=== PATIENT | male | born 1930 | race Caucasian/White ===

== ENCOUNTER 2019-10-11 09:41 | Observation (INO) | payer OTHER, MEDICARE ==
[2019-10-11] VITALS (10 sets, daily range): BP systolic 112–145; BP diastolic 58–73
[~2019-10-11] VITALS: Ht 177.8 cm; Wt 79.4 kg
--- NOTE | ~2019-10-11 | D ---
[facility] [place] [address] DISCHARGE SUMMARY Name: SATURNINO AYERS Room #: 207-P [facility] Jerry M.R.#: [id number] Admission: 10/11/19 Attend Phys: Fred Gabriel MD Discharge: 10/12/19 Date of : [birth year] Report #: [id number] THIS REPORT FOR: //name// CC: Dr. Shanice Jefferson DATE OF SERVICE: 10/12/2019 ADMITTING DIAGNOSES: 1. Sick sinus syndrome. 2. Pacemaker malfunction. 3. Coronary artery disease. 4. Dyslipidemia. DISCHARGE MEDICATIONS: Are home meds, which include lisinopril 10 mg daily, clopidogrel 75 daily, sublingual nitroglycerin p.r.n., rosuvastatin 5 daily, aspirin 81 mg daily, meclizine 25 daily. PROCEDURE PERFORMED: 1. Generator change. 2. Lead revision. FOLLOWUP: 1. With Dr. Gabriel in [address] Prasad as per his office orders. BRIEF CLINICAL HISTORY: See history and physical in the chart. HOSPITAL COURSE: The patient was admitted to the hospital and underwent uncomplicated lead revision and generator change. The specifics of the serial numbers are noted in the report itself. Post-procedure, the patient did quite well without any issues. Subsequent day readings were satisfactory. The patient was allowed to ambulate. Instructions on lack of movement of the affected arm for 4 weeks etc. was carried forth with him and his son. They voiced understanding. He is now being discharged in stable condition to follow up with the previously stated discharge instructions and medications. By: 1307 [id number] Olivier Meza MD /nt
[~2019-10-11 09:41] MED LIST: ANTIVERT25 MG PO; ASPIR 8181 MG PO; CRESTOR5 MG PO; NORCO 5-325 TA1 EACH PO; VALIUM5 MG PO; ZESTRIL10 MG PO
[2019-10-11] MEDS ORDERED: PLAVIX 75 MG TA75 MG PO (11:13)
[2019-10-11] MEDS ORDERED: MECLIZINE HCL25 M1 PO (14:59)
[2019-10-11] MEDS ORDERED: NITROGLYCERIN0.4 MG SUBLING (16:40)
--- NOTE | 2019-10-11 18:24 | NUR ---
PT. ARRIVED TO FLOOR AROUND 1415; PT. AOX4; NO C/O PAIN; IMMOLIZER OVER L. SIDE; R. GROIN SIDE C/D/I; NO HEMATOMA; L. SIDE CHEST C/D/I; NO HEMATOMA; EDUCATED ABOUT NOT PULLING OR PUSHING WITH L .SIDE; EDUCATED ABOUT KEEPING L. SIDE ARM CLOSE TO CHEST; ST. UNDERSTANDING; NEEDS TO BE REMAIN CONSTANTLY; SOME HESITANCY TO VOID; ABLE TO VOID 75 ML; BLADDER SCANNER 600 ML SHOWING; CONVENIENCE STORE MANAGER NOTIFIED; PT. ABLE TO VOID AFTER BED REST WHILE STANDING UP; 150 ML; BLADDER SCANNER SHOWED 401 ML; CONVENIENCE STORE MANAGER NOTIFIED; NO NEW ORDERS; PT. ABLE TO VOID 125 ML; PER CONVENIENCE STORE MANAGER NOT TO STRAIGHT CATH UNLESS MORE THAN 400 ML IN THE NEXT HOURS; WILL PASS ON REPORT; MONITORING; ASSESSMENT CHARGED; FOLLOWING POC; WILL PASS ON REPORT;
[2019-10-12] VITALS: BP 133/53
[2019-10-12 00:19] VITALS: BP 133/53
--- NOTE | 2019-10-12 04:05 | NUR ---
ASSESSMENT DOCUMENTED.PT BEEN RESTING IN NO ACUTE DISTRESS.A/OX4,FORGETFUL,[place] VSS.SON AT BEDSIDE THROUGH THE NOC.S/P PACEMAKER REVISION.LEFT CHEST INCISION INTACT,IMMOBILIZER IN PLACE.VOIDS W/O DIFFICULTIES THROUGH URINAL.POSSIBLE DISCHARGE TO HOME TODAY.
[2019-10-12 04:34] VITALS: BP 136/56
[2019-10-12 07:55] VITALS: BP 116/53
[2019-10-12 11:45] VITALS: BP 116/55
[2019-10-12 13:12] VITALS: BP 116/55
--- NOTE | 2019-10-12 13:55 | NUR ---
ASSUMMED PT CARE AT APPROXIMATELY 0700. PT A&O X4. ASSESSMENT CHARTED. FALL PRECAUTIONS IN PLACE. PT DENIES HAVING CHEST PAIN. PT DENIES HAVING SOB. PT DENIES HAVING ACUTE PAIN. PT DISCHARGING HOME C SELF CARE. PT AND FAMILY RECEIVED DISCHARGE EDUCATION. PT AND FAMILY STATED UNDERSTANDING AND DENIED HAVING FURTHER QUESTIONS. IV DC. TELE DC. PT RECEIVING HOSPITAL TRANSPORT TO DISCHARGE OFF UNIT. FAMILY MEMBER DRIVING PT HOME. PT DENIES HAVING FURTHER CONCERNS AT THIS TIME. VITAL SIGNS STABLE. PT'S R GROIN DRY AND INTACT. PT'S PACEMAKER INCISION SITE DRY AND INTACT.
--- NOTE | 2019-10-14 14:00 | P ---
[facility] [place] [address] PROCEDURE REPORT Name: ARMENSATURNINO Luanne Room #: 207-P [facility] MHernandez.#: [id number] Admission: 10/11/19 Attend Phys: Fred Gabriel MD Discharge: 10/12/19 Date of : [birth year] Report #: [id number] THIS REPORT FOR: //name// CC: Fred Jefferson DATE OF SERVICE: 10/11/2019 HISTORY: The patient is an 88-year-old with a history of complete heart block. He has had an elevated right ventricular pacing and sensing threshold. Recently, programming changes were made to the leads that I would pace in a unipolar configuration, but this has resulted in excessive pectoralis muscle stimulation. He is, therefore, here for a lead revision with generator exchange. ANESTHESIA: The patient underwent MAC anesthesia with no anesthesia related complications. PROCEDURES PERFORMED: 1. Temporary pacing wire implantation. 2. RV lead revision with placement of a new RV lead. 3. Dual-chamber pacemaker generator exchange. DESCRIPTION OF PROCEDURE: The patient underwent informed consent. We discussed the details of the procedure including the risks, which include but not limited to bleeding, infection, vascular damage, cardiac perforation, and pneumothorax. He understood these risks and is willing to proceed. The patient was brought to the EP laboratory in fasting and sedated state and prepped and draped in a sterile fashion. The patient received systemic vancomycin and then underwent a venogram showing patency of the left axillary vein. Next, I placed a temporary pacing wire via the right femoral 6-Malay short sheath. There were adequate pacing and sensing thresholds noted. The patient was then prepped for a generator exchange. I injected lidocaine at the prior incision site. The incision was made and the chronic pocket was entered. I made some room in the pocket, inferiorly and superiorly. When I moved the lead around, we did not see any loss of capture with the lead. Next, I obtained access to the left axillary vein x 1 using the extrathoracic approach. I could not go deep into the vessel with standard wire. Therefore, I used a Akira wire and was able to advance it deep into the right atrium. The patient did have some tortuosity at the right axillary vein, which made advancing the lead somewhat challenging. I, therefore, had to split the sheath in order to advance into the lead any further. I then positioned the lead into the right ventricular mid septum. At this site, the sensed P waves are around 2-3 millivolts. The thresholds were less than 1 volt at 0.4 milliseconds. The lead was, therefore, sutured to the prepectoral fascia. Next, the temporary wire [facility] [address] [place] [address] PROCEDURE REPORT Name: SATURNINO AYERS Room #: 207-P [facility] Jerry Miller#: [id number] Admission: 10/11/19 Attend Phys: Fred Gabriel MD Discharge: 10/12/19 Date of : [birth year] Report #: [id number] from the right femoral vein was pulled. I connected the new lead to the new device. I connected the old atrial lead, which was still functioning well to the new device. I capped the old RV lead. I placed a TYRX pouch in the pocket given his high risk for infection and complete heart block. The pocket was irrigated with vancomycin and then the pocket was closed in 2 layers using 2-0 for the deep layer, 3-0 for the middle layer, and surgical glue was placed to outer skin layer. The patient awoke neurologically and hemodynamically intact. No complications and no significant bleeding. The explanted pacemaker was a Medtronic model #VEDR01, serial #[id number]. The RV lead that we capped today was a [employer], model #1688TC, 58 cm, serial #[id number], which was originally implanted back in 01/2009. The old atrial lead was a [employer] model #1688TC, 52 cm, serial #[id number], also implanted on 02/09/2009. The newly implanted lead was a Medtronic model #5076, 58 cm, serial #[id number]. The atrial lead demonstrated a P-wave of 2 millivolts, pacing impedance of 418 ohms, and a pacing threshold of 0.75 volts at 0.4 milliseconds. The newly implanted pacemaker lead demonstrated no underlying R waves as the patient is dependent. Pacing impedance was 740 ohms and the pacing threshold was very good at 0.5 volts at 0.4 milliseconds. The device was programmed to the DDDR 60-130 mode. CONCLUSIONS: 1. Successful temporary wire placement. 2. Successful RV lead revision. 3. Successful pacemaker generator exchange. 4. Satisfactory atrial and ventricular pacing and sensing thresholds. 5. Implantation of a TYRX antibiotic pouch. <ELECTRONICALLY SIGNED> By: Fred Gabriel MD 10/14/19 1400 1317 1426 Fred Gabriel MD /nt
== END 2019-10-12 14:45 | disposition home or self-care (01) ==
LOC: CATH 09:41 → 2N 14:20 → CATH 14:51 → 2N 10-12 14:45
PROVIDERS: ADMIT Internal Medicine Cardiovascular Disease
DX: I49.5 Sick sinus syndrome (principal); I25.10 Atherosclerotic heart disease of native coronary artery without angina pectoris; I44.2 Atrioventricular block, complete; T82.119A Breakdown (mechanical) of unspecified cardiac electronic device, initial encounter; E78.5 Hyperlipidemia, unspecified; Z79.82 Long term (current) use of aspirin; Z79.899 Other long term (current) drug therapy
CPT/HCPCS: 62110; 62900; 70005

== ENCOUNTER 2020-06-09 01:23 | Inpatient (IN) | payer OTHER, MEDICARE ==
[~2020-06-09] VITALS: Ht 177.8 cm; Wt 77.1 kg
[~2020-06-09 01:23] MED LIST changes: +MECLIZINE HCL25 M1 PO; +NITROGLYCERIN0.4 MG SUBLING; +PLAVIX 75 MG TA75 MG PO
[2020-06-09] MEDS ORDERED: SEROQUEL 25 MG25 MG PO (01:50)
[2020-06-09] MEDS ORDERED: NAPRELAN375 MG PO (01:51)
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
[2020-06-09 05:06] VITALS: BP 158/67
[2020-06-09 08:39] VITALS: BP 143/77
[2020-06-09 10:45] VITALS: BP 143/77
--- NOTE | 2020-06-09 15:29 | NUR ---
ASSUMED CARE AT 0700 THIS MORNING. HE IS PLEASANT WITH STAFF. HE TOOK HIS MEDICATIONS WITHOUT DIFFICULTY.
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
[2020-06-09 19:18] VITALS: BP 134/65
[2020-06-09 22:00] VITALS: BP 134/65
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
--- NOTE | 2020-06-10 02:12 | NUR ---
Assumed care of patient this pm shift. Patient in his room at the beginning of the shift sleeping. Patient awakened for assessment. Patient denies pain. Patient denies hi/si. Patient is alert and oriented x2. Patient awoke several times during the night confused and worried about his wallet. Patient is medication adherent and takes medications whole with thin fluids. An order was recieved to give patient trazadone for sleep which he took willingly. Patients assessment shows no signs of acute distress. Vital signs are stable. Patients affect is blunted. We will continue to monitor per hospital policy.
[2020-06-10 07:38] VITALS: BP 146/67
[2020-06-10 09:21] VITALS: BP 146/67
--- NOTE | 2020-06-10 09:29 | NUR ---
ASSUMED CARE AT 0700 THIS MORNING. HE REMAINS IN HIS BED UNTIL PROMPTED TO COME OUT TO THE DAY ROOM. HE IS CONFUSED, ASKING IF HIS IS HERE FREQUENTLY. HE IS ASSURED THAT HIS IS NOT HERE. HE WILL ACCEPT THIS ANSWER, FORGET ANSWER, AND ASK AGAIN AND AGAIN IF HIS IS HERE. HE WENT TO MORNING MEETING, BUT GOT UP IN THE MIDDLE OF IT AND STARTED TO HIS ROOM. HE WAS PROMPTED TO GO TO GROUP AND WHEN IT IS OVER HE CAN RETURN TO HIS ROOM. HE REPLIED, "I'M ABOUT TO FALL ASLEEP" HE WALKED BACK TO THE DAY ROOM. HE IS NOT COMBATIVE, JUST DOESN'T LIKE STAFF ANSWERS. HE TOOK HIS MORNING MEDICATIONS WITHOUT PROBLEMS NOTED.
[2020-06-10 12:20] VITALS: BP 146/67
[2020-06-10 20:00] VITALS: BP 101/46
[2020-06-10 22:00] VITALS: BP 101/46
--- NOTE | 2020-06-11 02:21 | NUR ---
Assumed care of patient this pm shift. Patient is pleasantly confused and needs to be reminded of where he is at. Patient believed that his son was going to bring him a long sleeve shirt and take him home. RN spoke with patient and explained the discharge process several times. Patient is also concerned about his belongings. Patient denies pain. Patient denies hi/si. Patients assessment shows no signs of acute distress. Patients breath sounds are clear, bowel sounds present and s1 s2 heard with auscultation. RN also spoke with patients son who called earlier in the evening and explained that the patients are usually here to get their medications in balance and that the process is generally no more than a couple of weeks. Patient is very forgetful and requires repetition to remember. Patients affect is flat. Patient is alert and oriented to self. We will continue to monitor patient per hospital protocol.
--- NOTE | 2020-06-11 12:46 | NUR ---
REYMUNDO contacted Pt's , Elsi Limon, and son Shoaib Limon to set up a family meeting for Monday06/12/2020 @ 1pm. Family was in agreement with this time. Pablo had questions concerning Pt's diagnosis. REYMUNDO informed that Pt is diagnosised with Major Neuro-cognitive disorder. Shoaib inquired if the Pt's symptoms could be delirium. REYMUNDO educated Shoaib on delrium and major neuro cognitive disorder and also assusred Shoaib to ask the psychatrist about specifics concerning diagnosis. Shoaib went on to say that the pt has been had trouble sleeping, was animic and had a b-12 shortage. Shoaib stated that Pt recieved a b-12 injection last monday and asked that his b-12 levels be tested. Shoaib also wanted to know if he gave the Pt code to his siblings could information pertaining to the Pt's treatment not be given out. Shoaib stated he did not want confusion among siblings. REYMUNDO advised that it is uncertain this could happen, however REYMUNDO will talk to the team about the matter. Shoaib had no further questions during this call. REYMUNDO will continue to follow up with Pt
[2020-06-11 13:12] VITALS: BP 152/60
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
--- NOTE | 2020-06-11 19:15 | NUR ---
Care of patient assumed at 1915. Patient is sitting on his bed. A/O x 3. Confused to situation. Immediately verbalizes delusional thoughts that he has been out working and just returned to the hospital to find his had disappeared. Insists she was just sleeping in the bed with him last night. Attempted to reorient to reality with minimal success. Denies pain. Denies SI/HI. HS, LS, BS all WNL. Compliant with HS Seroquel. DPOA called at 2100 with many questions. Referred them to Dr George. They are concerned about the cognitive changes since admission, stating that the patient seems to have declined even further and that they don't even recognize him anymore based on his speech and thought process. Dr George notified of concerns and he will follow up tomorrow.
[2020-06-11 19:24] VITALS: BP 112/52
[2020-06-12 06:23] LABS: ABSOLUTE NEUTROPHILS 3.6 thou/uL (1.4-8.2); BASOPHILS 0.7 % (0.0-2.0); EOSINOPHILS 3.6 % (0.0-3.0); HEMATOCRIT 36.3 % (42.0-52.0); HEMOGLOBIN 12.3 gm/dL (14.0-18.0); LYMPHOCYTES 23.8 % (24.0-44.0); MCH 30.9 pg (26.0-34.0); MCHC 33.8 g/dL (28.0-37.0); MCV 91.4 fL (80.0-100.0); MONOCYTES 8.3 % (1.0-8.0); PLATELET COUNT 217 thou/uL (150-400); POLYS 63.6 % (36.0-66.0); RBC 3.97 mil/uL (4.50-6.00); RDW 13.8 % (10.5-14.5); WBC 5.7 thou/uL (4.0-11.0)
[2020-06-12 06:33] LABS: CALCIUM 8.5 mg/dL (8.5-10.1); CREATININE 1.5 mg/dL (0.7-1.3); MAGNESIUM 2.1 mg/dL (1.8-2.4); POTASSIUM 4.1 mmol/L (3.5-5.1)
[2020-06-12 07:41] VITALS: BP 123/56
--- NOTE | 2020-06-12 13:14 | NUR ---
WITHDRAWN TO ROOM MAJORITY OF AM DID COME OUT BRIEFLY FOR BREAKFAST AFTER 4TH PROMPT-DYSPHORIC MOOD-MULTIPLE NEGATIVE COMMENTS REGRADING FOOD,BED UNIT SCHEDULE ETC. "YOU SAY THIS IS A HOSPITAL BUT I SAY [facility] IS BETTER THAN THIS" MIMIMALLY COOPERATIVE WITH AM ASSESSMENT-1;1 INTERACTION FURING REVIEW OF SYSTEMS STATES "STOP ASKING ME-I'M TELLING YOU I'M FINE AND NEED TO GET HOME TO MY "FIF TAKE AM MEDS WITH EXCEPTION OF I, B12-"NOBODY SAID ANYTHING ABOUT SHOTS-YOU ARE TRYING TO DOPE ME UP"APPEARS [id number]-[id number] SOILED BUT REFUSES SHAVE-BAISON AND TOILETRIES SET UP FOR PATIENT AT SINK AND HE STATES ":ILL DO IT AFTER MY GETS HERE"
--- NOTE | 2020-06-12 16:49 | NUR ---
REYMUNDO and Dr. george have a family meeting via phone conference with Pt family which included the DPOA and Pt's . Treament was discussed with the family. The family had concerns about Pt " seeming more confused since being admitted". family also concerned about medications. Dr. George was able to provide education to the family on nuerocognitive disorder and current medication that have been perscribed. The family also wanted information concerning discharge planning. REYMUNDO explained the recommendation for the Pt is memory care. Family requested a listing of facilites in the [facility]. Family stated the Pt recieves [place] benefits and has buttermilk drier operator care insurance but was aware who the insurance was through. REYMUNDO encouraged the family to contact the buttermilk drier operator insurance plan and VA to consult on what benifits are avaliable to the Pt at this time. Family inquired about 24 hour care in the home. REYMUNDO informed the family that 24 hr care in the home is a choice, however advised to consult with Pts benifit providers and check coverage for the service. REYMUNDO also advised if the benifit is not covered family would need to have a plan to cover Pt's care in the home 19/06 if this becomes the decision. Family had no further questions or concerns REYMUNDO mailed a listing of NH to Pt's .
[2020-06-12 19:30] VITALS: BP 134/62
--- NOTE | 2020-06-13 04:39 | NUR ---
06-12-20 CARE TRANSFERED 1939 PT SUPINE IN BED RESTING WITH EYES CLOSED EASILY AWAKEN, AAOX2, PT PRESENTED FRUSTRATED BUT REMAINED CALM AND COOPERATIVE THROUGH NURSING ASSESSMENT. PT DENIED ANY PAIN. PT DENIES SI/SH/HI/AVH. PT HAD ZERO DIFFICUTES DURING MEDICATION ADMIN. THROUGHOUT NURSING ROUNDS ZERO S/S OF ACUTE EMOTIONAL OR MEDICAL DISTRESS; WILL CONTINUE TO MONITOR PER [facility] PROTOCOL.
[2020-06-13 09:12] VITALS: BP 121/58
[2020-06-13 10:41] VITALS: BP 127/58
--- NOTE | 2020-06-13 13:59 | NUR ---
RESUMMED CARE FROM OVERNIGHT SHIFT THIS AM, PATIENT IN DAY ROOM QUIET AT TABLE. PATIENT ATE BREAKFAST TOOK MEDICATION WITHOUT INCIDENCE, PATIENT ORIENTED TIMES 4. PATIENTS ABDOMEN SOFT ROUND BOWEL SOUNDS PRESENT LUNGS CLEAR. PATIENT DENIES SI/HI/AH/VH AT PRESENT PATIENT COOPERATIVE PLEASANT. PATIENT STATES HE WANTS TO GO HOME SOON POSSIBLE WILL CONTINUE TO MONITOR PATIENT FOR BEHAVIORS AND SAFETY.
[2020-06-13 18:54] VITALS: BP 127/52
--- NOTE | 2020-06-14 03:53 | NUR ---
06-13-20 CARE TRANSFERED 1914 PT SUPINE RESTING WIHT EYES CLOSED. 2014 PT SITTING UP IN BED. PT AAOX1 KNEW WHAT HOSPITAL BUT NOT THE CITY, PT WAS REORIENATED TO . PT SKIN W/D, VSS, RR EVEN AND NONLABORED ON RA. PT DENIES ANY PAIN AND SI/SH/HI/VAH. DURING MEDICATION ADMIN PT HAD ZERO DIFFICULTIES. THROUGHOUT NURSING ROUNDS PT HAD ZERO S/S ACUTE EMOITIONAL OR MEDICAL DISTRESS. WILL CONTINUE TO MONITOR PER [facility] PROTOCOL.
[2020-06-14 07:47] VITALS: BP 153/52
--- NOTE | 2020-06-14 08:50 | NUR ---
Assumed care 0700. Up for breakfast self feeding without complaints, no concerns, no goals.
--- NOTE | 2020-06-14 18:30 | NUR ---
Up ad kay ambulating without difficulty. Pleasant demeanor. not observed initiating conversation with peers. Did attend S.W. group. Compliant with medication. Denies SI/HI/AH/VH. When asked if her were grieving he said yes and proceeded to explain. The story he revealed was told as anevent he believes he witnessed then he also said he dreamt about it. This involves his having another man in their house. was in the kitchen in her gown saying to him, "eat me, eat me." They then went into the bedroom to the bed and she put her hand over his head so he could not see the other man leaving from the closet out the room door. When he confronted her about this she told him he was delusional then he ended up here. Pt. was matter of fact, used correct sentence structure. At one point he was almost tearful.
[2020-06-14 20:59] VITALS: BP 150/69
--- NOTE | 2020-06-15 05:36 | NUR ---
Assumed care on 06/14/20 @ 19:15, ambulates without difficulty, cooperative with care. Denies SI, HI, AH, VH. Reports thinking about daughter and that she tells him what to do in his home. Spoke to son Shoaib [phone], he reports that he thinks his father should change from Seroquel to Risperodol, as suggested by shoaib's Brother in law who is a psychitrist in a psych hospital. Shoaib also asked about his father getting B-12 injecitons. Son Shoaib would like to speak to be called by Doctor and speak to about his father's medications.
[2020-06-15 08:52] VITALS: BP 103/57
--- NOTE | 2020-06-15 13:49 | NUR ---
REYMUNDO spoke with Debora Limon about pt. She asked SW to email her a NH listing to [email or web address]. REYMUNDO sent her a listing of NH options in the [facility] area. She also asked that Dr. George call Shoaib to discuss pt's meds. REYMUNDO explained that the doctor has 5 discharges today so he may not be able to call until the morning. REYMUNDO relayed this info to Dr. George. SW team will continue to follow pt during his stay on this unit.
--- NOTE | 2020-06-15 18:40 | NUR ---
PT WAS OOB UP AND ABOUT, WALKING THE HALWAYS WITH WALKER. PT ATE MOST OF FOOD OFFERED TODAY. ASSESSMENT WAS FOLLOWS, LUNGS CLEAR X2 AND HEART SOUNDS NSR. BOWEL SOUNDS ACTIVE,PEDAL PULSE EQUAL AND STRONG. ATTENDED PT. Rene ATTENDED GROUPS TODAY. STAFF CONTINUES TO MONITOR PT FOR SAFETY.
[2020-06-15 18:50] VITALS: BP 103/57
[2020-06-15 19:22] VITALS: BP 149/66
[2020-06-15 19:23] VITALS: BP 149/66
[2020-06-15 21:15] VITALS: BP 149/66
[2020-06-16 07:42] VITALS: BP 126/61
[2020-06-16 08:20] VITALS: BP 126/61
--- NOTE | 2020-06-16 09:14 | NUR ---
PT UP WALKING WITH WALKER. PT TOOK MEDS WITHOUT ANY ISSUES. PT IN GROUP NOW AT THIS TIME.
--- NOTE | 2020-06-16 10:45 | NUR ---
REYMUNDO and Dr. George spoke to Shoaib Limon at [phone] regarding pt's med regimen. REYMUNDO also discussed placement with Shoaib and that she sent a listing to Debora yesterday via email. REYMUNDO team will continue to follow pt during his stay on this unit.
--- NOTE | 2020-06-16 15:47 | NUR ---
RT Progress Note- Jose has been participating in all recreation therapy groups offered to him. He is pleasant upon interaction and especially enjoys reminiscing and telling stories. He requires ocassional reorientation or direction but is accepting of this.
--- NOTE | 2020-06-16 15:51 | NUR ---
PT REFUSED GROUP WITH COORDINATOR OF HEALTH SERVICES. PT SITTING IN DINING ROOM RESTING WITH EYES CLOSED ON COUCH.
[2020-06-16 19:25] VITALS: BP 128/50
--- NOTE | 2020-06-17 03:55 | NUR ---
06-16-20 CARE TRANSFERED AT 1915 OBSERVED PT LEFT SIDE LYING RESTING WITH EYES CLOSED. 2004 PT AAOX2, SKIN W/D, VSS, RR EVEN AND NONLABORED, PT PRESENTED CLAM AND COOPERATIVE THROUGHOUT NURSING ASSESSMENT. PT DENIES PAIN AND SI/SH/HI/VAH. PT HAD NO DIFFICULTIES DURING MEDICATION ADMIN. LATER ASSISTED PT WITH REPOSITION BED FOR COMFORT AND DURING NEXT NURSING ROUND PT ASKED WHERE IS HIS BROTHER, PT WAS REORIENTATED THAT HE WAS AT [facility]. AND HIS BROTHER WAS NOT HERE, PT STATED HE NEEDED TO GO TO THE BATHROOM HEADING INTO HALLWAY, PT WAS REDIRECTED TO BATHROOM IN ROOM. THROUGHOUT NURSING ROUNDS ZERO S/S OF ACUTE EMOTIONAL OR MEDICAL DISTRESS NOTED. WILL CONTINUE TO MONITOR PER [facility] PROTOCOL.
[2020-06-17 07:49] VITALS: BP 140/62
--- NOTE | 2020-06-17 08:00 | NUR ---
Assumed care 0700. Charles hose put on-alredy had on right hose. Left one wshed, found in the bed. Denies pain. Goal is to go home today. Self-fed breakfast. Using walker, though sometimes puts it far from bathroom door. Steady on his feet. Has occasionl upper extremity tremors.
--- NOTE | 2020-06-17 10:01 | NUR ---
Assumed care at 0700. Denies c/o pain. Hs no current concerns or goals. Self-fed breakfast, using walker. Compliant with meds.
--- NOTE | 2020-06-17 14:09 | NUR ---
REYMUNDO received a msg from Kat with [facility] stating that family reached out to her and asked her to facilitate a referral from [facility] to that facility. REYMUNDO faxed a referral to [facility]. REYMUNDO provided an update via email to Debora Limon of the referral and also asked for more referral options. SW team will continue to follow pt during his stay on this unit.
[2020-06-17 18:16] VITALS: BP 100/59
--- NOTE | 2020-06-17 18:23 | NUR ---
ASSUMED CARE THIS MORNING AT 0700. PT. IN BED BUT GOT UP, DRESSED AND INTO THE DINNING ROOM FOR MEALS. HE IS PLEASANT AND COOPERATIVE WITH STAFF. HE TAKES HIS MEDICATIONS WITHOUT PROBLEMS NOTED. HE SMILES WHILE HE IS TALKING TO STAFF. HE CALLED AND TALKED TO HIS X 2 TODAY. NO NEW PROBLEMS NOTED OR VOICED.
[2020-06-17 19:36] VITALS: BP 143/57
--- NOTE | 2020-06-18 04:34 | NUR ---
CARE TRANSFERED 191 OBSERVED PT SLOW SHUFFLING GAIT USING WALKER. 1999 PT AAOX1 REORINATED TO CITY AND FACILITY. PT VSS, RR EVEN AND NONLABORED ON RA, PT DENIES ANY PAIN AND SI/SH/HI/VAH. PT REMAINED CALM AND COOPERATIVE THROUGHOUT NURSING ASSESSMENT. DURING MEDICATION PT HAD NO DIFFICULTIES. 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 PT BED WAS REPOSITION PER PT REQUEST AND COMFORT. THROUGHOUT NURSING ROUNDS PT HAS HAD NO S/S OF ACUTE EMOTIONAL OR MEDICAL DISTRESS. WILL CONTINUE TO MONITOR PER [facility] PROTOCOL.
[2020-06-18 07:25] VITALS: BP 137/67
--- NOTE | 2020-06-18 09:36 | NUR ---
0700 ASSUMED CARE OF PATIENT, PATIENT IN ROOM AT THAT TIME. PATIENT IN ROOM LYING IN BED WITH EYES CLOSED. PATIENT DENIES NEEDS. NO C/O PAIN, PATIENT DENIES GOALS OR CONCERN FOR TODAY. VS WNL. WILL CONTINUE TO OBSERVE
--- NOTE | 2020-06-18 14:10 | NUR ---
REYMUNDO followed up on and sent referrals to the following: [facility] - spoke to Kat 06/18. Interested. Assessing him now.[facility] - referral sent 06/18[facility] - referral sent 06/18[facility] - referral sent 06/18[facility] - - referral sent 06/18 [facility] - referral sent 06/18 Kat also mentioned that Dania Braxton brought a deposit last night to the facility. REYMUNDO team will continue to follow pt during his stay on this unit.
--- NOTE | 2020-06-18 14:15 | NUR ---
Nutrition: pt admit with cognitive decline, delusions, paranoia. Seen for early LOS. Pt eating on average 70% of meals past 4 days. Nsg confirms pt is a slow eater but does well. Wt up 5# from admit. On Vitamin D supplementation for deficiency. No nutrition intervention at this time. Consider low risk.
[2020-06-18 19:40] VITALS: BP 140/53
[2020-06-18 23:00] VITALS: BP 140/53
--- NOTE | 2020-06-19 01:25 | NUR ---
Assumed care of patient this pm shift. Patient in good spirits sitting in a wheelchair in the cesar at the beginning of the shift. Patient is calm and cooperative. Patients affect is blunted. Patient is alert and oriented to person, place and time. Patient is a falls risk and is wearing a yellow shirt and yellow socks. Patient is encouraged to ambulate with his walker. Patients assessment shows no signs of acute distress. Assessment shows clear breath sounds, active bowel sounds, and s1 s2 heard with auscultation. Patient denies pain. Patient denies hi/si. Patient is medication adherent and takes medications whole with thin fluids. We will continue to monitor per hospital policy.
[2020-06-19 07:24] VITALS: BP 109/41
--- NOTE | 2020-06-19 13:11 | NUR ---
COOPERATIVE WITH REQUESTS FROM STAFF THIS AM-TOOK MEDICATIONS WITHOUT RESISTANCE. VS STABLE AND DENIES ANY COMPLAINTS DURING AM ASSESSMENT STATING "I FEEL PRETTY GOOD" AFFECT SLIGHLTY CONSTRICTED-WILL VISIT WITH MALE PEER DURING MEALS AND IS ATTENDING SCHEDULED GROUPS. GAIT STEADY WITH USE OF ROLLER WALKER. DENIES SI/SH/HI. NO NOTED OR REPORTED PSYCHOSIS OR ACUTE ANXIETY.
--- NOTE | 2020-06-19 14:32 | NUR ---
Shoaib contacted REYMUNDO and said [facility] is okay since his sister Dania put down a deposit, as long as there are no cases of COVID. REYMUNDO provided education on that many nursing homes have COVID pts; Shoaib should ask how they are managing the cases. He agreed. He asked to have the facility call him. REYMUNDO contacted Kat with [facility] who confirmed that have 0 cases of COVID at their facility. She also did not know Dania was not the decision maker. She said she will contact Shoaib. REYMUNDO and Kat scheduled d/c for Friday 06/22 @11am. She said she will contact Shoaib immediately after hanging up with REYMUNDO. REYMUNDO team will continue to follow pt during his stay on this unit.
--- NOTE | 2020-06-20 03:52 | NUR ---
Pt alert and oriented x2. Pt was in his room at time of assessment. Pt was calm and cooperative during assessment. Pt denies anxiety and/or depression. Pt denies SI/HI/AH/VH. Pt denies pain at time of assessment. Pt took meds whole. Pt currently in bed sleeping. Will continue to monitor.
--- NOTE | 2020-06-20 13:25 | NUR ---
PT WAS OOB IN DAY ROOM WHEN I ARRIVED ON DUTY. PT ATE ALL OF BREAKFAST THIS AM AND LUNCH. ASSESMENT LUNGS CLEAR X2, HEART RATE WNL, PEDAL PULSE FAINT NO EDEMA NOTED. COVID TEST DONE AND REPORT WAS NEGATIVE. PT SAID HE WAS LOOKING FOWARD TO BEING DISCHARGED AND SEEING HIS AND THAT WAS HIS GOAL. SATURNINO WAS SOCIAL WITH PEERS AT HIS TABLE. PT HAS NO COMPLAINTS AT THIS PRESENT TIME.
--- NOTE | 2020-06-20 23:41 | NUR ---
Care assumed of patient at 1915: Patient seated in his room at start of shift. Patient calm, pleasant and cooperative. Showing good insight into reasoning for current admission. Patient states that he had made statements of "jumping off a building". States that he no longer feels that way. Denies SI/HI/AH/VH. Alert and oriented x4. Patient requested to call his . Appears that patient had a good conversation with his . States that he does miss her. Reports that it was a good phone call. No delusional or paranoia behaviors observed. Patient goal directed in wanting to discharge soon. Patient ate 100% HS snack. Took HS medication whole without difficulty. Gait steady, good balance. Did need reminders into keeping his walker with him at all times. Patient was able to retire to bed at a reasonable hour and is resting quietly at this time.
[2020-06-21 07:51] VITALS: BP 132/57
--- NOTE | 2020-06-21 11:13 | NUR ---
Assumed care at 0700. Denied pain. Reported having a large BM this AM. Wants to go home as goal. He was informed he would be going to [place] and would have a ride there. He wanted to see if his car was in the parking lot here. He is oriented to person and place in the hospital. He relinquished shirt and jeans for washing. He watched TV and fell asleep.
--- NOTE | 2020-06-21 12:48 | NUR ---
Nurse spoke with patient's son about 25 minutes answering questions about discharge to [facility] tomorrow. Clothes are being washed here. Son reported he would be moving in furniture to his room tomorrow. Thus far patient is accepting of moving to [facility]. He asked about where he (pt.) would go after [facility]. Was told this nurse did not know for sure what further plans might be in the future. Son relayed pt. would be in isolation for 2 weeks. Then would have less restriction.
--- NOTE | 2020-06-21 16:17 | NUR ---
Working on a puzzle after S.W. group. Minimal participation. When reinforcing he was leaving to go to [place] tomorrow at 1100 he was approched with staff having time to help him with a shower, patient declined. He continued working on the puzzle. He indicates he really does not want to go there. He does not know or understand what kind of place that is. He was told his son would be moving in some furniture for him tomorrow.
[2020-06-21 19:37] VITALS: BP 133/59
[2020-06-21 21:57] VITALS: BP 133/59
--- NOTE | 2020-06-22 02:01 | NUR ---
Assumed care of patient this pm shift. Patient was laying down in his room during the assessment. Patient is in good spirits, calm and cooperative. Patients affect is blunted. Patient is alert and oriented to person, place, and situation. Patient ambulates with a walker and needs encouragement to use it on a consistent basis. Patient is medication adherent and takes medications whole with thin fluids. Patients assesment shows no signs of acute distress. Breath sounds clear, bowel sounds are present, and s1 s2 heard with auscultation. Patient did not voice any concerns at this time. We will continue to monitor per hospital policy.
[2020-06-22 07:16] VITALS: BP 107/47
[2020-06-22] MEDS ORDERED: PLAVIX 75 MG TA75 MG PO (08:55)
[2020-06-22] MEDS ORDERED: NORVASC5 MG PO (08:55)
[2020-06-22] MEDS ORDERED: SEROQUEL 100 M100 M1 PO (08:56)
[2020-06-22] MEDS ORDERED: TRAZODONE HCL50 MG PO (08:56)
[2020-06-22] MEDS ORDERED: PEPCID20 MG PO (08:57)
[2020-06-22] MEDS ORDERED: B-12500 MCG PO (08:57)
[2020-06-22] MEDS ORDERED: VITAMIN D325 MC1 PO (08:57)
--- NOTE | 2020-06-22 09:41 | NUR ---
pT WAS IN HIS ROOM TRYING TO GET DRESSED IN HIS CLOTHES TO BE TEADY FOR TRANSFER TO ASSISTED LIVING FACILITY. PT ATE ALL FOOD OFFERED TO HIM THIS AM. MEDICATIONS TAKEN WITH OUT RESISTANCE, WHOLE. ASSESMENT PEDAL PULSE FAINT AND EQUAL LUNGS CLEAR X2 NO EDEMA NOTED , SKIN DRY. TO BE TRANSPORTED TO OTHER FACILITY. V/S STABLE
[2020-06-22 10:55] VITALS: BP 132/70
== END 2020-06-22 13:00 | disposition short-term general hospital (02) | DRG 57 ==
LOC: SBH
PROVIDERS: Nurse Practitioner; ADMIT Psychiatry & Neurology Psychiatry; ATTEND Psychiatry & Neurology Psychiatry
DX: G30.9 Alzheimer's disease, unspecified (principal); F02.81 Dementia in other diseases classified elsewhere, unspecified severity, with behavioral disturbance; N17.9 Acute kidney failure, unspecified; R45.851 Suicidal ideations; F01.51 Vascular dementia, unspecified severity, with behavioral disturbance; E87.1 Hypo-osmolality and hyponatremia; I12.9 Hypertensive chronic kidney disease with stage 1 through stage 4 chronic kidney disease, or unspecified chronic kidney disease; G89.29 Other chronic pain; M54.9 Dorsalgia, unspecified; I49.5 Sick sinus syndrome; F20.9 Schizophrenia, unspecified; N18.2 Chronic kidney disease, stage 2 (mild); E53.8 Deficiency of other specified B group vitamins; E55.9 Vitamin D deficiency, unspecified; E78.5 Hyperlipidemia, unspecified; I25.10 Atherosclerotic heart disease of native coronary artery without angina pectoris; K52.9 Noninfective gastroenteritis and colitis, unspecified; Z95.0 Presence of cardiac pacemaker; Z98.49 Cataract extraction status, unspecified eye; Z90.49 Acquired absence of other specified parts of digestive tract; Z87.891 Personal history of nicotine dependence; Z95.1 Presence of aortocoronary bypass graft; Z88.1 Allergy status to other antibiotic agents; Z88.2 Allergy status to sulfonamides; Z88.8 Allergy status to other drugs, medicaments and biological substances; Z03.818 Encounter for observation for suspected exposure to other biological agents ruled out
CPT/HCPCS: 10880